=== PATIENT | female | born 1975 | race Caucasian/White ===

== ENCOUNTER 2017-05-25 07:01 | Emergency (ER) | payer BC, OTHER ==
[2017-05-25 07:42] VITALS: BP 121/86
--- NOTE | 2017-05-25 08:01 | UC ---
Throat Pain/Nasal Christophe HPI - HPI Summary HPI Summary: 2 weeks of sinus congestion which has not lead to pain and discomfort. She is a smoker. She has tried decongestants otc without any help. No fevers. Minimal cough. - History of Current Complaint Chief Complaint: UCRespiratory Stated Complaint: SINUS COMPLAINT Time Seen by Provider: 05/25/17 07:32 Hx Obtained From: Patient Hx Last Menstrual Period: yesterday Onset/Duration: Sudden Onset, Lasting Weeks Severity: Moderate Cough: Nonproductive Associated Signs & Symptoms: Positive: Sinus Discomfort. Negative: Dysphagia, FB Sensation, Drooling, Fever, Vomiting, Rash Related History: Smoking - Allergies/Home Medications Allergies/Adverse Reactions: Allergies Allergy/AdvReac Type Severity Reaction Status Date / Time Cefaclor [From Ceclor] Allergy Severe Hives Verified 05/25/17 07:42 Ciprofloxacin [From Cipro] Allergy Severe Hives Verified 05/25/17 07:42 Penicillins Allergy Hives Verified 05/25/17 07:42 PMH/Surg Hx/FS Hx/Imm Hx Previously Healthy: No - smoker. - Surgical History Surgical History: Yes Surgery Procedure, Year, and Place: Tonsillectomy, 1981, [place] Tubal ligation - Family History Known Family History: Negative: Hypertension, Diabetes - Social History Occupation: Employed Full-time Lives: With Family Alcohol Use: None Substance Use Type: None Smoking Status (MU): Current Every Day Smoker Type: Cigarettes Review of Systems ENT: Sinus Congestion, Sinus Pain/Tenderness All Other Systems Reviewed And Are Negative: Yes Physical Exam Triage Information Reviewed: Yes Appearance: Well-Appearing, No Pain Distress, Well-Nourished Vital Signs: Initial Vital Signs Temp 98.5 F 05/25/17 07:39 Pulse 89 05/25/17 07:39 Resp 18 05/25/17 07:39 BP 121/86 05/25/17 07:39 Vital Signs Reviewed: Yes Eyes: Positive: Conjunctiva Clear ENT: Positive: Pharynx normal, TMs normal, Sinus tenderness. Negative: Pharyngeal erythema, Nasal congestion, Nasal drainage, TM bulging, TM dull, TM red, Tonsillar swelling, Tonsillar exudate, Trismus, Muffled voice Neck: Positive: Supple, Nontender, No Lymphadenopathy Respiratory: Positive: Lungs clear, Normal breath sounds, No accessory muscle use. Negative: Respiratory distress, Decreased breath sounds, Accessory muscle use, Crackles, Rhonchi, Stridor, Wheezing Cardiovascular: Positive: No Murmur, Pulses Normal, Brisk Capillary Refill Abdomen Description: Positive: No Organomegaly, Soft. Negative: Distended, Guarding Musculoskeletal: Positive: Strength Intact, ROM Intact, No Edema Neurological: Positive: Alert, Muscle Tone Normal. Negative: Fatigued Psychological: Positive: Normal Response To Family, Age Appropriate Behavior Skin: Negative: rashes Throat Pain/Nasal Course/Dx - Course Course Of Treatment: supportive care and antibiotics. - Differential Dx/Diagnosis Provider Diagnoses: sinusitis. Discharge - Discharge Plan Condition: Good Disposition: HOME Prescriptions: Sulfamethox/Trimethoprim DS* [Bactrim DS 800/160 TAB*] 1 tab PO BID #20 tab Patient Education Materials: Sinusitis (ED) Referrals: Alton Reece MD [Primary Care Provider] - Additional Instructions: Continue decongestants and add nasal irrigation such as netti pots or saline irrigation rinses.
== END 2017-05-25 08:05 | disposition home or self-care (01) ==
LOC: UCCORT 07:01
DX: J32.9 Chronic sinusitis, unspecified (principal); Z88.1 Allergy status to other antibiotic agents; Z88.0 Allergy status to penicillin; F17.210 Nicotine dependence, cigarettes, uncomplicated
CPT/HCPCS: 99212; G0463